=== PATIENT | female | born 1955 | race Caucasian/White ===

== ENCOUNTER → 2018-03-05 | Outpatient (CLI) | payer OTHER | LOC: M WUC 16:40 | DX: M19.071 Primary osteoarthritis, right ankle and foot (principal); M77.31 Calcaneal spur, right foot | CPT/HCPCS: 73630 ==

== ENCOUNTER → 2021-12-09 | Outpatient (REF) | payer MEDICARE ==
[2021-12-09 21:12] LABS: CALCIUM, URINE 16.2 MG/DL
== END ==
LOC: M LAB REF 15:47
PROVIDERS: ATTEND Internal Medicine Endocrinology, Diabetes & Metabolism
DX: M85.89 Other specified disorders of bone density and structure, multiple sites (principal)

== ENCOUNTER → 2022-09-29 | Outpatient (CLI) | payer MEDICARE ==
[2022-09-29 09:12] LABS: HEMATOCRIT 45.4 % (36.0-47.0); HEMOGLOBIN 14.9 g/dl (12.0-15.5); MEAN CORPUSCULAR HEMOGLOBIN 29.8 pg (27.0-33.0); MEAN CORPUSCULAR HGB CONC 32.8 g/dl (32.0-36.5); MEAN CORPUSCULAR VOLUME 90.8 fl (80.0-96.0); PLATELET COUNT, AUTOMATED 273 10^3/uL (150-450); WHITE BLOOD COUNT 6.5 10^3/uL (4.0-10.0)
[2022-09-29 09:23] LABS: CREATININE, URINE 105.6 MG/DL; MAU/CREAT RATIO 11.3 MCG/MG (0.0-30.0)
[2022-09-29 09:25] LABS: ALBUMIN 3.8 G/DL (3.2-5.2); ALKALINE PHOSPHATASE 129 U/L (46-116); ALT/SGPT 55 U/L (7.0-40); AST/SGOT 55 U/L (<34); BILIRUBIN,TOTAL 0.5 MG/DL (0.3-1.2); BLOOD UREA NITROGEN 12 MG/DL (9-23); CALCIUM LEVEL 9.6 MG/DL (8.3-10.6); CARBON DIOXIDE LEVEL 26 MMOL/L (20-31); CHLORIDE LEVEL 103 MMOL/L (98-107); CHOLESTEROL LEVEL 213 MG/DL (<200); GLOMERULAR FILTRATION RATE > 60.0 (>45); GLUCOSE, FASTING 234 MG/DL (74-106); HDL CHOLESTEROL 45.3 MG/DL (>40); LDL CHOLESTEROL 119.9 MG/DL (<100); NON-HDL-C 167.7 MG/DL; POTASSIUM SERUM 4.2 MMOL/L (3.5-5.1); SODIUM LEVEL 139 MMOL/L (136-145); TOTAL PROTEIN 6.7 G/DL (5.7-8.2); TRIGLYCERIDES LEVEL 239 MG/DL (<150)
== END ==
LOC: M LAB 08:22
PROVIDERS: ATTEND Internal Medicine Endocrinology, Diabetes & Metabolism
DX: E11.65 Type 2 diabetes mellitus with hyperglycemia (principal); Z79.899 Other long term (current) drug therapy

== ENCOUNTER → 2024-08-02 | Outpatient (REF) | payer MEDICARE ==
[2024-08-02 15:16] LABS: BLOOD UREA NITROGEN 15 MG/DL (9-23); CALCIUM LEVEL 10.4 MG/DL (8.3-10.6); CARBON DIOXIDE LEVEL 29 MMOL/L (20-31); CHLORIDE LEVEL 102 MMOL/L (98-107); CREATININE FOR GFR 0.88 MG/DL (0.55-1.30); GLOMERULAR FILTRATION RATE > 60.0 (>39); GLUCOSE, FASTING 121 MG/DL (74-106); POTASSIUM SERUM 4.5 MMOL/L (3.5-5.1); SODIUM LEVEL 141 MMOL/L (136-145)
[2024-08-02 15:17] LABS: TOTAL 25(OH) VITAMIN D 55.1 NG/ML (20.0-100.0)
== END ==
LOC: M LABWUC 14:13
PROVIDERS: ATTEND Nurse Practitioner Family
DX: M85.89 Other specified disorders of bone density and structure, multiple sites (principal)